=== PATIENT | male | born 1950 | race Caucasian/White ===

== ENCOUNTER 2020-08-26 11:04 | Outpatient (RCR) | payer MEDICARE, SELFPAY ==
[2020-08-26] MEDS: COVID-19 VACC, MRNA(PFIZER)/PF 30 MCG/0.3 ML SYRINGE IM (09:36)
[2020-09-16] MEDS: COVID-19 VACC, MRNA(PFIZER)/PF 30 MCG/0.3 ML SYRINGE IM (09:17)
== END 2020-11-30 23:59 ==
LOC: IMMUN 11:04
PROVIDERS: Visit Provider Family Medicine
DX: Z23 Encounter for immunization (principal)
CPT/HCPCS: 0001A; 0002A; 91300

== ENCOUNTER → 2023-01-09 | Outpatient (CLI) | payer OTHER, SELFPAY ==
--- NOTE | 2023-01-09 08:40 | ECHOCS_ITS ---
Reason For Study: CAD/ASHD Procedure This was a 2D Doppler, Color Flow transthoracic echocardiogram. The study was technically difficult. Contrast injection was performed. Exam performed in department. Left Ventricle Normal LV size. Mild concentric left ventricular hypertrophy. The left ventricular ejection fraction is 60 %. Normal diastology for age. Right Ventricle Normal right ventricle. Atria The left atrium is mildly enlarged. The right atrium is not well visualized. Mitral Valve Trivial mitral valve insufficiency. Tricuspid Valve Trivial tricuspid valve insufficiency. Unable to estimate RV systolic pressure due to insufficient tricuspid regurgitant envelope. Aortic Valve Aortic sclerosis, no stenosis. Pulmonic Valve The pulmonic valve is not well visualized. Great Vessels Mildly dilated aortic root. Pericardium/Pleural No pericardial effusion. Medication 22 gauge I.V. with prn adaptor inserted into right arm. Diluted definity 3ml given slow IV push to enhance endocardial definition. Performed a rapid injection of agitated mix of 9 cc saline and 1cc air to assess for atrial septal defect. MMode/2D Measurements & Calculations LVIDd: 5.7 cm IVSd: 1.3 cm Ao root diam: 3.8 cm LVIDs: 4.0 cm LVPWd: 1.0 cm FS: 29.5 % LAV(MOD-bp): 80.6 ml LVAd ap4: 35.9 cm2 SV(MOD-sp4): 67.5 ml LAV(MOD-bp) Indexed: 30.7 ml/m2 LVLd ap4: 8.4 cm LAV(MOD-sp2): 90.9 ml EDV(MOD-sp4): 120.9 ml LAV(MOD-sp4): 68.5 ml EDV(sp4-el): 129.1 ml LVAs ap4: 22.2 cm2 LVLs ap4: 7.7 cm ESV(MOD-sp4): 53.4 ml ESV(sp4-el): 54.2 ml EF(MOD-sp4): 55.8 % EF(sp4-el): 58.0 % SV(sp4-el): 74.9 ml LA A4 area: 23.3 cm2 LA dimension(2D): 4.2 cm RA A4 area: 22.6 cm2 TAPSE: 1.7 cm Time Measurements MV dec time: 0.24 sec Doppler Measurements & Calculations MV E max chau: 55.6 cm/sec Lat Peak E' Chau: 9.7 cm/sec Med Peak E' Chau: 5.9 cm/sec MV A max chau: 65.1 cm/sec E/E' lat: 5.7 E/E' med: 9.5 MV E/A: 0.85 MV V2 max: 67.3 cm/sec MV dec slope: 227.5 cm/sec2 Ao V2 max: 96.4 cm/sec MV max P.8 mmHg Ao max P.7 mmHg MV V2 mean: 39.0 cm/sec Ao V2 mean: 67.5 cm/sec MV mean P.69 mmHg Ao mean P.1 mmHg MV V2 VTI: 28.7 cm Ao V2 VTI: 24.4 cm AV (velocity ratio): 0.85 LV V1 max: 85.4 cm/sec PA V2 max: 83.8 cm/sec LV V1 max P.9 mmHg PA V2 mean: 64.5 cm/sec LV V1 mean P.6 mmHg LV V1 mean: 59.6 cm/sec LV V1 VTI: 20.8 cm ECHO/Echo Complete W/ Contrast Interpretation Summary The study was technically difficult. The left ventricular ejection fraction is 60 %. Aortic sclerosis, no stenosis. Mildly dilated aortic root. Ordering Physician: Bienvenido Costa Referring Physician: Bienvenido Costa Performed By: Radha Watkins RCS
== END | disposition home or self-care (01) ==
LOC: CVS 08:37
PROVIDERS: Referring Provider Chiropractor; Visit Provider Chiropractor
DX: I25.10 Atherosclerotic heart disease of native coronary artery without angina pectoris (principal)
CPT/HCPCS: 93306; Q9957; A4216; C8929